=== PATIENT | male | born 1955 | race African-American/Black ===

== ENCOUNTER 2021-07-30 14:49 | Observation (INO) | payer MEDICARE, MEDICAID ==
[2021-07-30 15:56] LABS: #Lymphocytes 2.2 thou/uL (1.20-3.40); #Monocytes 0.7 thou/uL (0.11-0.59); #Neutrophils 6.8 thou/uL (1.40-6.50); %Basophils 0.3 % (0.0-1.0); %Eosinophils 0.4 % (0.0-10.0); %Lymphocytes 22.5 % (21.0-51.0); %Monocytes 7.4 % (0.0-10.0); %Neutrophils 69.5 % (42.0-75.0); Hemoglobin 15.8 g/dL (14.0-18.0); Mean Corpuscular HGB CONC 33.4 g/dL (32.0-36.0); Mean Corpuscular Hemoglobin 29.5 pg (27.0-31.0); Mean Corpuscular Volume 88.4 fL (78.0-98.0); Mean Platelet Volume 7.8 fL (7.4-10.4); Platelet Count 265 thou/uL (130-400); RBC Distribution Width 12.3 % (11.5-14.5); Red Blood Cell (RBC) Count 5.34 mill/uL (4.70-6.10); White Blood Cell (WBC) Count 9.8 thou/uL (4.8-10.8)
[2021-07-30] MEDS ORDERED: Pantoprazole 40 MG VIAL ONE (16:15)
[2021-07-30 16:18] LABS: ALT (SGPT) 25 U/L (8-55); AST (SGOT) 42 U/L (5-34); Albumin 3.9 g/dL (3.4-4.8); Alkaline Phosphatase 78 U/L (40-110); Anion Gap 13 mmol/L (10-20); BUN (Urea Nitrogen) 16 mg/dL (8.4-25.7); Bilirubin, Total 0.8 mg/dL (0.2-1.2); Calc. Creatinine Clearance 0 mL/min (70-130); Calcium 9.3 mg/dL (7.8-10.44); Carbon Dioxide 28 mmol/L (23-31); Chloride 91 mmol/L (98-107); Globulin 3.3 g/dL (2.4-3.5); Glucose 109 mg/dL (80-115); Potassium 3.8 mmol/L (3.5-5.1); Protein, Total 7.2 g/dL (5.8-8.1); Sodium 128 mmol/L (136-145)
[2021-07-30] MEDS ORDERED: Famotidine/PF 20 mg/2ml Vial ONE (17:02)
[2021-07-30] MEDS ORDERED: Metoclopramide HCl 10 MG/2 ML VIAL ONE (17:02)
[2021-07-30] MEDS ORDERED: Ondansetron PF 4 MG/2 ML Vial IVP PRN (18:41)
[2021-07-30] MEDS ORDERED: Acetaminophen 325 MG TAB PO PRN (18:41)
[2021-07-30] MEDS ORDERED: Ondansetron ODT 4 MG TAB PO PRN (18:41)
[2021-07-30] MEDS ORDERED: Nicotine 14 MG PATCH TD SCH (19:15)
[2021-07-30 19:29] LABS: Hemoglobin A1c 5.6 % (4.0-6.0)
[2021-07-30] MEDS ORDERED: Metoclopramide HCl 10 MG/2 ML VIAL IVP PRN (19:48)
[2021-07-30 20:11] VITALS: BMI 29.0
[2021-07-30 22:10] LABS: Troponin I Less than 0.010 ng/mL (< 0.028)
[2021-07-31 06:36] LABS: Anion Gap 11 mmol/L (10-20); BUN (Urea Nitrogen) 15 mg/dL (8.4-25.7); Calc. Creatinine Clearance 77 mL/min (70-130); Calcium 9.4 mg/dL (7.8-10.44); Carbon Dioxide 28 mmol/L (23-31); Cardiac Risk 5.3 (Less than 4.5); Chloride 101 mmol/L (98-107); Cholesterol 165 mg/dl (< 200 Desired); Glucose 99 mg/dL (80-115); HDL Cholesterol 31 mg/dL (>60 Neg Risk); LDL Cholesterol, Calculated 121 mg/dL; Potassium 3.9 mmol/L (3.5-5.1); Sodium 136 mmol/L (136-145); Triglycerides 67 mg/dL (Less than 150)
[2021-07-31] MEDS ORDERED: Enoxaparin Sodium 40 MG/0.4 ML SYRINGE SC SCH (09:00)
[2021-07-31 11:47] LABS: SARS-CoV-2 PCR by NAA Not Detected (NotDetected)
[2021-07-31 12:06] VITALS: BP 128/82; TEMP 98.2
[2021-07-31] MEDS ORDERED: Atorvastatin Calcium 20 MG TAB PO SCH (21:00)
== END 2021-07-31 12:55 | disposition home or self-care (01) ==
LOC: ERS 14:49 → 2SW 17:54
PROVIDERS: ADMIT Emergency Medicine; ATTEND Emergency Medicine
DX: R07.89 Other chest pain (principal); R06.6 Hiccough; I10 Essential (primary) hypertension; K21.9 Gastro-esophageal reflux disease without esophagitis; E87.1 Hypo-osmolality and hyponatremia; F17.210 Nicotine dependence, cigarettes, uncomplicated; Z20.822 Contact with and (suspected) exposure to COVID-19
CPT/HCPCS: 71045; 80048; 80053; 80061; 83036; 84484 ×2; 85025; 93005; 96372; 96374; 96375; 99285; G0378 ×3; U0003; U0005; 36415; C9113; J1650; J2765; S0028

== ENCOUNTER 2024-03-18 14:52 | Inpatient (IN) | payer OTHER, MEDICAID ==
[2024-03-18 18:21] VITALS: BMI 32.3
[2024-03-19 07:36] VITALS: BMI 32.2
[2024-03-20 09:14] VITALS: TEMP 98.1
[2024-03-20 12:49] VITALS: BP 118/79
== END 2024-03-20 14:22 | disposition home health service (06) | DRG 64 ==
LOC: ERS 14:52 → CCU 16:40 → 2SE 03-19 16:08
PROVIDERS: ADMIT Internal Medicine; ATTEND Internal Medicine
DX: I60.9 Nontraumatic subarachnoid hemorrhage, unspecified (principal); G93.41 Metabolic encephalopathy; I67.83 Posterior reversible encephalopathy syndrome; I16.1 Hypertensive emergency; I67.4 Hypertensive encephalopathy; I62.9 Nontraumatic intracranial hemorrhage, unspecified; I10 Essential (primary) hypertension; H54.7 Unspecified visual loss; F17.210 Nicotine dependence, cigarettes, uncomplicated; H40.9 Unspecified glaucoma; F10.20 Alcohol dependence, uncomplicated; Z79.899 Other long term (current) drug therapy
CPT/HCPCS: 36415; 70450; 70544; 70553; 80306; 82607; 83036; 84425; 86780; 93005; A9579; J0360; J2272; J7050